=== PATIENT | female | born 1990 | race Two or more races ===

== ENCOUNTER 2021-04-21 13:03 | Outpatient (CLI) | payer BC ==
--- NOTE | 2021-04-21 22:12 | XRAY Report ---
PROCEDURE: Lumbar Spine 2 View INDICATIONS: LUMBAR RADICULOPATHY TECHNIQUE: 3 views of the lumbar spine were acquired. COMPARISON: None. FINDINGS: There are 5 nonrib-bearing lumbar type vertebral bodies. Suspected L5 pars defects with approximately 7 mm anterolisthesis of L5 on S1. Mild lumbar levoscoliosis. Vertebral body heights maintained. Face t osteoarthropathy at L4-L5 and L5-S1. No significant disc height loss appreciated IMPRESSION: Suspected bilateral pars defects at L5 with grade 1 spondylolisthesis and associated deg enerative facet arthropathy. Reviewed by: Patrick Boateng MD on 04/21/2021 10:10 PM PST Approved by: Patrick Boateng MD on 04/21/2021 10:10 PM PST Station ID: [id number]
== END 2021-04-21 13:04 | disposition home or self-care (01) ==
LOC: DI.S 13:03
PROVIDERS: ATTEND Nurse Practitioner Family
DX: M47.816 Spondylosis without myelopathy or radiculopathy, lumbar region (principal); M43.16 Spondylolisthesis, lumbar region